=== PATIENT | male | born 1990 | race Caucasian/White ===

== ENCOUNTER 2016-08-10 23:08 | Emergency (ER) | payer BC ==
[2016-08-10] MEDS ORDERED: Sodium Chloride 0.9% 1,000 ML IV ONE (23:20)
[2016-08-10] MEDS ORDERED: Ondansetron 4 MG/2 ML SDV IVPUSH ONE (23:20)
[2016-08-10] MEDS ORDERED: Ketorolac 30 MG/ML SDV IVPUSH ONE (23:20)
--- NOTE | 2016-08-10 23:21 | EDM.PDOC ---
ED HPI GENERAL MEDICAL PROBLEM - General Chief Complaint: Abdominal Pain Stated Complaint: ABDOMINAL PAIN, BLOOD IN STOOL, BACK PAIN Time Seen by Provider: 08/10/16 23:21 Source of Information: Reports: Patient - History of Present Illness INITIAL COMMENTS - FREE TEXT/NARRATIVE: HISTORY AND PHYSICAL: History of present illness: [] Patient presents with bright red blood per rectum today with bowel movement, small amount of blood but patient concerned as toilet was essentially red with blood No apparent distress he was complaining of some abdominal pain rated 3/10 diffuse nonradiating No fever nausea vomiting diarrhea constipation chest pain shortness breath headache dizziness or palpitation no bowel or urine symptoms outside of the perirectal and Review of systems: As per history of present illness and below otherwise all systems reviewed and negative. Past medical history: As per history of present illness and as reviewed below otherwise noncontributory. Surgical history: As per history of present illness and as reviewed below otherwise noncontributory. Social history: No reported history of drug or alcohol abuse. Family history: As per history of present illness and as reviewed below otherwise noncontributory. Physical exam: HEENT: Atraumatic, normocephalic, pupils reactive, negative for conjunctival pallor or scleral icterus, mucous membranes moist, throat clear, neck supple, nontender, trachea midline. Lungs: Clear to auscultation, breath sounds equal bilaterally, chest nontender. Heart: S1S2, regular, negative for clicks, rubs, or JVD. Abdomen: Soft, nondistended, nontender. Negative for masses or hepatosplenomegaly. Negative for costovertebral tenderness. Pelvis: Stable nontender. Genitourinary: Deferred. Rectal: External exam no mass scarred lesion internal exam no mass scar or lesion guaiac was +3+ Extremities: Atraumatic, negative for cords or calf pain. Neurovascular unremarkable. Neuro: Awake, alert, oriented. Cranial nerves II through XII unremarkable. Cerebellum unremarkable. Motor and sensory unremarkable throughout. Exam nonfocal. Diagnostics: [] Lab as below Guaiac +3+ CT abdomen pelvis with contrast Therapeutics: [] 1 L normal saline bolus Protonix 80 mg IV Return if symptoms persist or worsen Followup with general surgery consider colonoscopy Impression: [] A millimeter nonobstructing renal stone Bright red blood per rectum Definitive disposition and diagnosis as appropriate pending reevaluation and review of above. abdomen Pain Score (Numeric/FACES): 5 - Related Data Allergies Allergy/AdvReac Type Severity Reaction Status Date / Time No Known Allergies Allergy Verified 08/10/16 23:19 Home Meds: Home Meds . [No Known Home Meds] 08/10/16 [History] ED ROS GENERAL - Review of Systems Review Of Systems: ROS reveals no pertinent complaints other than HPI. ED EXAM, GENERAL - Physical Exam Exam: See Below Course - Vital Signs Last Recorded V/S: Last Vital Signs Temp 36.8 C 08/10/16 23:21 Pulse 86 08/10/16 23:21 Resp 16 08/10/16 23:21 BP 140/92 H 08/10/16 23:21 Pulse Ox 96 08/10/16 23:21 - Orders/Labs/Meds Orders: Active Orders 24 hr Category Date Time Status Fecal Occult Blood Collection [RC] ASDIRECTED Care 08/11/16 00:19 Active Abdomen Pelvis w Cont [CT] Stat Exams 08/10/16 23:55 Taken methylPREDNISolone Sod Succ [Solu-MEDROL] Med 08/11/16 01:41 Stop Req 125 mg IVPUSH ONETIME ONE Labs: Laboratory Tests 08/10/16 08/10/16 08/10/16 Range/Units 23:30 23:51 23:51 WBC 10.49 (4.0-11.0) K/uL RBC 5.54 (4.50-5.90) M/uL Hgb 15.9 (13.0-17.0) g/dL Hct 44.9 (38.0-50.0) % MCV 81.0 (80.0-98.0) fL MCH 28.7 (27.0-32.0) pg MCHC 35.4 (31.0-37.0) g/dL RDW Std Deviation 36.1 (28.0-62.0) fl RDW Coeff of Bjorn 13 (11.0-15.0) % Plt Count 281 (150-400) K/uL MPV 9.10 (7.40-12.00) fL Neut % (Auto) 47.8 L (48.0-80.0) % Lymph % (Auto) 42.6 H (16.0-40.0) % [place] % (Auto) 7.2 (0.0-15.0) % Eos % (Auto) 2.3 (0.0-7.0) % Baso % (Auto) 0.1 (0.0-1.5) % Neut # (Auto) 5.0 (1.4-5.7) K/uL Lymph # (Auto) 4.5 H (0.6-2.4) K/uL Grimes # (Auto) 0.8 (0.0-0.8) K/uL Eos # (Auto) 0.2 (0.0-0.7) K/uL Baso # (Auto) 0.0 (0.0-0.1) K/uL Nucleated RBC % 0.0 /100WBC Nucleated RBCs # 0 K/uL INR (0.86-1.11) Sodium 139 (136-146) mmol/L Potassium 4.1 (3.5-5.1) mmol/L Chloride 106 (98-110) mmol/L Carbon Dioxide 23 (21-31) mmol/L BUN 16 (6.0-23.0) mg/dL Creatinine 1.1 (0.6-1.5) mg/dL Est Cr Clr Drug Dosing 119.36 mL/min Estimated GFR (MDRD) > 60.0 ml/min Glucose 87 (60-110) mg/dL Calcium 8.8 (8.8-10.8) mg/dL Total Bilirubin 0.4 (0.1-1.5) mg/dL AST 26 (5-40) IU/L ALT 44 (8-54) IU/L Alkaline Phosphatase 57 (40-150) Troponin I (0.0-0.29) NG/ML Total Protein 7.4 (6.0-8.0) g/dL Albumin 4.7 (3.5-5.0) g/dL Globulin 2.7 (2.0-3.5) g/dL Albumin/Globulin Ratio 1.7 (1.3-2.8) Amylase 47 (10-90) U/L Lipase 48 (7-80) U/L Urine Color YELLOW Urine Appearance CLEAR Urine pH 5.5 (5.0-8.0) Ur Specific [place] 1.025 (1.001-1.035) Urine Protein NEGATIVE (NEGATIVE) mg/dL Urine Glucose (UA) NEGATIVE (NEGATIVE) mg/dL Urine Ketones NEGATIVE (NEGATIVE) mg/dL Urine Occult Blood TRACE-INTACT (NEGATIVE) Urine Nitrite NEGATIVE (NEGATIVE) Urine Bilirubin NEGATIVE (NEGATIVE) Urine Urobilinogen 0.2 (<2.0) EU/dL Ur Leukocyte Esterase NEGATIVE (NEGATIVE) Urine RBC 2-5 (0-2/HPF) Urine WBC 0-1 (0-5/HPF) Ur Epithelial Cells RARE (NONE-FEW) Urine Bacteria RARE (NEGATIVE) 08/10/16 08/10/16 Range/Units 23:51 23:51 WBC (4.0-11.0) K/uL RBC (4.50-5.90) M/uL Hgb (13.0-17.0) g/dL Hct (38.0-50.0) % MCV (80.0-98.0) fL MCH (27.0-32.0) pg MCHC (31.0-37.0) g/dL RDW Std Deviation (28.0-62.0) fl RDW Coeff of Bjorn (11.0-15.0) % Plt Count (150-400) K/uL MPV (7.40-12.00) fL Neut % (Auto) (48.0-80.0) % Lymph % (Auto) (16.0-40.0) % Grimes % (Auto) (0.0-15.0) % Eos % (Auto) (0.0-7.0) % Baso % (Auto) (0.0-1.5) % Neut # (Auto) (1.4-5.7) K/uL Lymph # (Auto) (0.6-2.4) K/uL [place]imes # (Auto) (0.0-0.8) K/uL Eos # (Auto) (0.0-0.7) K/uL Baso # (Auto) (0.0-0.1) K/uL Nucleated RBC % /100WBC Nucleated RBCs # K/uL INR 0.94 (0.86-1.11) Sodium (136-146) mmol/L Potassium (3.5-5.1) mmol/L Chloride (98-110) mmol/L Carbon Dioxide (21-31) mmol/L BUN (6.0-23.0) mg/dL Creatinine (0.6-1.5) mg/dL Est Cr Clr Drug Dosing mL/min Estimated GFR (MDRD) ml/min Glucose (60-110) mg/dL Calcium (8.8-10.8) mg/dL Total Bilirubin (0.1-1.5) mg/dL AST (5-40) IU/L ALT (8-54) IU/L Alkaline Phosphatase (40-150) Troponin I < 0.10 (0.0-0.29) NG/ML Total Protein (6.0-8.0) g/dL Albumin (3.5-5.0) g/dL Globulin (2.0-3.5) g/dL Albumin/Globulin Ratio (1.3-2.8) Amylase (10-90) U/L Lipase (7-80) U/L Urine Color Urine Appearance Urine pH (5.0-8.0) Ur Specific [place] (1.001-1.035) Urine Protein (NEGATIVE) mg/dL Urine Glucose (UA) (NEGATIVE) mg/dL Urine Ketones (NEGATIVE) mg/dL Urine Occult Blood (NEGATIVE) Urine Nitrite (NEGATIVE) Urine Bilirubin (NEGATIVE) Urine Urobilinogen (<2.0) EU/dL Ur Leukocyte Esterase (NEGATIVE) Urine RBC (0-2/HPF) Urine WBC (0-5/HPF) Ur Epithelial Cells (NONE-FEW) Urine Bacteria (NEGATIVE) Meds: Medications Discontinued Medications Generic Name Dose Route Start Last Admin Trade Name Freq PRN Reason Stop Dose Admin Sodium Chloride 1,000 mls @ 999 mls/hr 08/10/16 23:20 08/11/16 00:02 Normal Saline IV 08/11/16 00:20 999 mls/hr STAT ONE Administration Iopamidol 100 ml 08/11/16 01:13 08/11/16 01:15 Isovue Multipack-370 (76%) IVPUSH 08/11/16 01:14 100 ml ONETIME STA Administration Ketorolac Tromethamine 30 mg 08/10/16 23:20 08/11/16 00:02 Toradol IVPUSH 08/10/16 23:21 Not Given ONETIME ONE Methylprednisolone Sodium Succinate 125 mg 08/11/16 01:41 Solu-Medrol IVPUSH 08/11/16 01:42 ONETIME ONE Ondansetron HCl 8 mg 08/10/16 23:20 08/11/16 00:04 Zofran IVPUSH 08/10/16 23:21 8 mg ONETIME ONE Administration Pantoprazole Sodium 80 mg 08/10/16 23:47 08/11/16 00:06 Protonix Iv IVPUSH 08/10/16 23:48 80 mg .BOLUS ONE Administration Tamsulosin HCl 0.4 mg 08/11/16 01:41 Flomax PO 08/11/16 01:42 ONETIME ONE Departure - Departure Time of Disposition: 01:47 Disposition: Home, Self-Care 01 Condition: good Clinical Impression: BRBPR (bright red blood per rectum) - Discharge Information Forms: ED Department Discharge Additional Instructions: Return if symptoms persist or worsen Followup with general surgery consider colonoscopy Followup with her primary care as needed at [place], colonoscopy was also performed at [place] once to twice per month Or you may call for followup through our facility as below [facility] - General Surgery [address], [address] [place] [address] The following information is given to patients seen in the emergency department who are being discharged to home. This information is to outline your options for follow-up care. We provide all patients seen in our emergency department with a follow-up referral. The need for follow-up, as well as the timing and circumstances, are variable depending upon the specifics of your emergency department visit. If you don't have a primary care physician on staff, we will provide you with a referral. We always advise you to contact your personal physician following an emergency department visit to inform them of the circumstance of the visit and for follow-up with them and/or the need for any referrals to a consulting specialist. The emergency department will also refer you to a specialist when appropriate. This referral assures that you have the opportunity for follow-up care with a specialist. All of these measure are taken in an effort to provide you with optimal care, which includes your follow-up. Under all circumstances we always encourage you to contact your private physician who remains a resource for coordinating your care. When calling for follow-up care, please make the office aware that this follow-up is from your recent emergency room visit. If for any reason you are refused follow-up, please contact the [facility] emergency department at and asked to speak to the emergency department charge nurse. - My Orders Last 24 Hours: My Active Orders 08/10/16 23:55 Abdomen Pelvis w Cont [CT] Stat 08/11/16 00:19 Fecal Occult Blood Collection [RC] ASDIRECTED 08/11/16 01:41 methylPREDNISolone Sod Succ [Solu-MEDROL] 125 mg IVPUSH ONETIME ONE - Assessment/Plan Last 24 Hours: My Active Orders 08/10/16 23:55 Abdomen Pelvis w Cont [CT] Stat 08/11/16 00:19 Fecal Occult Blood Collection [RC] ASDIRECTED 08/11/16 01:41 methylPREDNISolone Sod Succ [Solu-MEDROL] 125 mg IVPUSH ONETIME ONE
[2016-08-10] MEDS ORDERED: Pantoprazole 40 MG Vial IVPUSH ONE (23:47)
[2016-08-11 00:47] LABS: CHLORIDE,CL 106 mmol/L (98-110); SODIUM,NA 139 mmol/L (136-146)
[2016-08-11] MEDS ORDERED: Iopamidol 755 MG/ML 500 ML Multipack Bottle IVPUSH STA (01:13)
[2016-08-11] MEDS ORDERED: methylPREDNISolone Sodium Succinate 125 MG/2 ML SDV IVPUSH ONE (01:41)
[2016-08-11] MEDS ORDERED: Tamsulosin 0.4 MG Cap.ER PO ONE (01:41)
[2016-08-11 02:07] VITALS: BP 127/87
--- NOTE | 2016-08-11 11:03 | CT ---
EXAM DATE: 08/10/16 PATIENT'S AGE: 25 Patient: ANDREY HIDALGO Facility: [place], [place] Site . Site : 1990 Study: CT Abdomen/Pelvis W CONT [id number]/[id number] 1:26:32 AM Ordering Physician: Shantal Fink Final Report: INDICATION: Abdominal pain radiating to back. Blood in stools TECHNIQUE: CT abdomen and pelvis acquired with IV contrast. 100 cc Isovue 370 COMPARISON: None FINDINGS: Lower chest: Unremarkable. Liver: Unremarkable. Spleen: Unremarkable. Pancreas: Unremarkable. Gallbladder and bile ducts: Unremarkable. Kidneys: 3 millimeter nonobstructing calculus mid zone right kidney. Adrenal glands: Unremarkable. GI tract: Unremarkable. Appendix is not visualized. Vascular structures: Unremarkable. Lymph nodes: Unremarkable. Miscellaneous: Unremarkable. No free air or significant free fluid. Pelvic Organs: Unremarkable. Bones: Unremarkable for age. IMPRESSION: 3 millimeter nonobstructing calculus in the distal right kidney. The appendix is not visualized. No findings to explain the patient`s symptomatology. Dictated by Rik Sam MD @ 08/11/2016 1:38:08 AM Dictated by: Rik Sam MD @ 08/11/2016 01:38:13 (Electronic Signature) Report Signed by Proxy. [facility]
== END 2016-08-11 02:04 | disposition home or self-care (01) ==
LOC: MW.ED 23:08
DX: K62.5 Hemorrhage of anus and rectum (principal); N20.0 Calculus of kidney
CPT/HCPCS: 36415; 74177; 80053; 81001; 82150; 82272; 83690; 84484; 85025; 85610; 96361; 96374; 96375; 99285; C9113; J2405; J7040; Q9967; 99284